=== PATIENT | male | born 1940 | race Caucasian/White ===

== ENCOUNTER → 2017-02-23 | Outpatient (CLI) | payer OTHER ==
[~2017-02-23] MED LIST: AMLODIPINE5 MG PO; ASPIR 8181 MG PO; BETA PROSTATE PO; FLOMAX0.4 MG PO; LEVOTHROID0.075 MG PO; MINOCYCLINE HCL50 M1 PO; OMEGA 3 KRILL; RAMIPRIL5 MG PO; VITAMIN D31000 IU PO
[2017-02-23 10:11] LABS: ALBUMIN 3.8 gm/dl (3.1-4.5); BUN 11 mg/dl (7-24); CHLORIDE 107 mmol/L (98-107); CHOLESTEROL 191 mg/dL (<200); CREATININE 1.09 mg/dL (0.70-1.30); POTASSIUM 4.1 mmol/L (3.5-5.1); SGOT/AST 22 IU/L (3-35); SGPT/ALT 34 U/L (12-78); SODIUM 139 mmol/L (136-145); TRIGLYCERIDES 128 mg/dl (<150); VLDL CHOLESTEROL 26 mg/dL (6-40)
[2017-02-23 10:12] LABS: BASO % 0.6 % (0.0-1.0); EOS # 0.1 10*3/uL (0.0-0.4); EOS % 2.4 % (1.0-4.0); HEMATOCRIT 43.9 % (42.0-52.0); HEMOGLOBIN 14.6 g/dl (14.0-18.0); LYMPH # 1.4 10*3/uL (1.3-4.4); LYMPH % 28.4 % (27.0-41.0); MEAN CELL VOLUME 96.1 fl (80.0-94.0); MEAN CORPUSCULAR HGB 31.9 pg (27.0-31.0); MEAN CORPUSCULAR HGB CONC 33.3 g/dl (33.0-37.0); MONO # 0.4 10*3/uL (0.1-1.0); MONO % 8.6 % (3.0-9.0); NEUT % 59.6 % (47.0-73.0); PLATELET COUNT AUTOMATED 279 10*3/uL (130-400); RED BLOOD COUNT 4.57 10*6/uL (4.50-5.90)
[2017-02-23 10:18] LABS: ALKALINE PHOSPHATASE 87 U/L (45-117); FREE T4 0.92 ng/dl (0.76-1.46); HDL CHOLESTEROL 44 mg/dl (40-60); LDL CHOLESTEROL 121 mg/dL (9-159); TOTAL PROTEIN 7.8 gm/dL (6.4-8.2)
== END | disposition home or self-care (01) ==
LOC: LAB 08:56
PROVIDERS: Internal Medicine
DX: I10 Essential (primary) hypertension (principal); E03.9 Hypothyroidism, unspecified; I25.10 Atherosclerotic heart disease of native coronary artery without angina pectoris

== ENCOUNTER 2017-03-22 11:46 | Emergency (ER) | payer OTHER ==
[~2017-03-22] VITALS: Ht 172.7 cm; Wt 65.8 kg
[2017-03-22 11:50] VITALS: BP 142/84
[2017-03-22] MEDS ORDERED: VIBRAMYCIN100 MG PO (12:10)
== END 2017-03-22 12:11 | disposition home or self-care (01) ==
LOC: ED 11:46
DX: A26.0 Cutaneous erysipeloid (principal); A69.20 Lyme disease, unspecified; R03.0 Elevated blood-pressure reading, without diagnosis of hypertension; Z90.89 Acquired absence of other organs; Z79.899 Other long term (current) drug therapy; Z79.82 Long term (current) use of aspirin

== ENCOUNTER → 2018-12-04 | Day surgery (SDC) | payer OTHER ==
[~2018-12-04] VITALS: Wt 70.0 kg
[~2018-12-04] MED LIST changes: +CIPRO500 MG PO; +COREG6.25 MG PO; +COZAAR100 MG PO; +ELIQUIS5 M1 PO; +HYDR12.5C PO; +HYDR25T PO; +IMDUR SA30 MG PO; +LEVOTHYROXINE50 MCG PO; +NITROSTAT0.4 MG PO; +PLAVIX75 M1 PO; +PRAVASTATIN SOD10 MG PO; +SEPTDS PO; +VIBRAMYCIN100 MG PO
--- NOTE | ~2018-12-04 | O ---
[place], [place] OPERATIVE NOTE NAME: KEILY MONTIEL UNIT #: [id number] ROOM: DOCTOR: IMELDA ORTEGA MD BIRTHDATE: [birth year] DOS: 12/04/2018 PREOPERATIVE DIAGNOSIS: Cataract, right eye. POSTOPERATIVE DIAGNOSIS: Cataract, right eye. OPERATION: Extracapsular cataract extraction by phacoemulsification with posterior chamber intraocular lens implantation, right eye. ANESTHESIA: Monitored standby. OPERATIVE FINDINGS AND PROCEDURE: 2% Xylocaine topical anesthetic gel was applied to the eye in the preop area. The patient was taken to the operating room and prepped and draped in the standard fashion for sterile intraocular surgery. A time out procedure was performed verifying correct patient, correct site and corrects lens with Mikhail Ortega M.D. The operating microscope was swung into position and the lid speculum was inserted. Using a April paracentesis blade, a paracentesis was made through clear cornea. Viscoelastic was used to fill the anterior chamber. Using a metal keratome a 2.4 mm self-sealing clear corneal cataract incision was made temporally at the limbus. Using a pre-bent 25 gauge cystotome needle, a standard continuous curvilinear capsulorrhexis was performed. The anterior capsule was removed with forceps. The lens nucleus was hydrodissected and phacoemulsified in the posterior chamber. Cortical material was removed with the irrigation aspiration hand piece and the posterior capsule was then polished with a curet under irrigation. The posterior chamber and capsular bag were filled with viscoelastic. A posterior chamber intraocular lens manufactured by: [employer], [id number], and 16.5 diopters in strength were then inserted into the posterior chamber and within the capsular bag using the lens cartridge and injector system. Viscoelastic was removed using the irrigation aspiration handpiece. The anterior chamber was filled with balanced salt solution through the paracentesis. Both the paracentesis site and cataract incisions were hydrated with BSS and verified to be water-tight and self-sealing. Cefuroxime 1 mg/0.1 mL was injected into the anterior chamber through the paracentesis site. The incision checked to be water-tight using a Weck-Riri sponge. The integrity of the cataract wound and ocular tension were checked. Lid speculum and drapes were removed. The patient was transferred from the operating room to the recovery room in satisfactory condition. [place], [place] OPERATIVE NOTE NAME: KEILY MONTIEL UNIT #: [id number] ROOM: DOCTOR: IMELDA ORTEGA MD BIRTHDATE: [birth year] IMELDA ORTEGA MD CM:OPRECORD:OPERATIVE NOTE 1142 1150 IMELDA ORTEGA MD 12/04/18 1151 interface
[2018-12-04 10:20] VITALS: BP 164/86
[2018-12-04 11:40] VITALS: BP 146/79
[2018-12-04 11:55] VITALS: BP 149/74
[2018-12-04 12:10] VITALS: BP 141/75
== END | disposition home or self-care (01) ==
LOC: SDC 11-29 09:30
DX: H25.811 Combined forms of age-related cataract, right eye (principal); I25.2 Old myocardial infarction; I25.10 Atherosclerotic heart disease of native coronary artery without angina pectoris; I48.91 Unspecified atrial fibrillation; I69.844 Monoplegia of lower limb following other cerebrovascular disease affecting left non-dominant side; K21.9 Gastro-esophageal reflux disease without esophagitis; E78.5 Hyperlipidemia, unspecified; M19.90 Unspecified osteoarthritis, unspecified site; Z79.82 Long term (current) use of aspirin; Z79.899 Other long term (current) drug therapy; Z72.89 Other problems related to lifestyle; Z95.5 Presence of coronary angioplasty implant and graft; Z98.890 Other specified postprocedural states; Z79.01 Long term (current) use of anticoagulants; Z82.49 Family history of ischemic heart disease and other diseases of the circulatory system

== ENCOUNTER → 2019-01-08 | Day surgery (SDC) | payer OTHER ==
[~2019-01-08] VITALS: Ht 170.1 cm; Wt 68.0 kg
--- NOTE | ~2019-01-08 | O ---
[place], [place] OPERATIVE NOTE NAME: KEILY MONTIEL UNIT #: [id number] ROOM: DOCTOR: IMELDA ORTEGA MD BIRTHDATE: [birth year] DOS: 01/08/2019 PREOPERATIVE DIAGNOSIS: Cataract, left eye. POSTOPERATIVE DIAGNOSIS: Cataract, left eye. OPERATION: Extracapsular cataract extraction by phacoemulsification with posterior chamber intraocular lens implantation, left eye. ANESTHESIA: Monitored standby. OPERATIVE FINDINGS AND PROCEDURE: 2% Xylocaine topical anesthetic gel was applied to the eye in the preop area. The patient was taken to the operating room and prepped and draped in the standard fashion for sterile intraocular surgery. A time out procedure was performed verifying correct patient, correct site and corrects lens with Mikhail Ortega M.D. The operating microscope was swung into position and the lid speculum was inserted. Using a April paracentesis blade, a paracentesis was made through clear cornea. Sugarcaine, mixture of lidocaine and epinephrine, was injected into the anterior chamber. Viscoelastic was used to fill the anterior chamber. Using a metal keratome a 2.4 mm self-sealing clear corneal cataract incision was made temporally at the limbus. Using a pre-bent 25 gauge cystotome needle, a standard continuous curvilinear capsulorrhexis was performed. The anterior capsule was removed with forceps. The lens nucleus was hydrodissected and phacoemulsified in the posterior chamber. Cortical material was removed with the irrigation aspiration hand piece and the posterior capsule was then polished with a curet under irrigation. The posterior chamber and capsular bag were filled with viscoelastic. A posterior chamber intraocular lens manufactured by: [employer], Model #[id number] and 16.5 diopters in strength were then inserted into the posterior chamber and within the capsular bag using the lens cartridge and injector system. Viscoelastic was removed using the irrigation aspiration handpiece. The anterior chamber was filled with balanced salt solution through the paracentesis. Both the paracentesis site and cataract incisions were hydrated with BSS and verified to be water-tight and self-sealing. Cefuroxime 1 mg/0.1 mL was injected into the anterior chamber through the paracentesis site. The incision checked to be water-tight using a Weck-Riri sponge. The integrity of the cataract wound and ocular tension were checked. Lid speculum and drapes were removed. The patient was transferred from the operating room to the recovery room in satisfactory condition. [place], [place] OPERATIVE NOTE NAME: KEILY MONTIEL UNIT #: [id number] ROOM: DOCTOR: IMELDA ORTEGA MD BIRTHDATE: [birth year] IMELDA ORTEGA MD CM:OPRECORD:OPERATIVE NOTE 1520 00 IMELDA ORTEGA MD 01/08/19 1900 interface
[2019-01-08 14:20] VITALS: BP 151/94
[2019-01-08 15:17] VITALS: BP 150/78
[2019-01-08 15:32] VITALS: BP 147/81
[2019-01-08 15:45] VITALS: BP 130/79
== END | disposition home or self-care (01) ==
LOC: SDC 01-03 11:00
DX: H25.812 Combined forms of age-related cataract, left eye (principal); I25.2 Old myocardial infarction; I25.10 Atherosclerotic heart disease of native coronary artery without angina pectoris; I10 Essential (primary) hypertension; I69.354 Hemiplegia and hemiparesis following cerebral infarction affecting left non-dominant side; E78.5 Hyperlipidemia, unspecified; Z96.41 Presence of insulin pump (external) (internal); Z96.1 Presence of intraocular lens; Z79.82 Long term (current) use of aspirin; Z79.899 Other long term (current) drug therapy; Z87.891 Personal history of nicotine dependence; Z98.890 Other specified postprocedural states; Z72.89 Other problems related to lifestyle; Z82.49 Family history of ischemic heart disease and other diseases of the circulatory system

== ENCOUNTER → 2019-02-25 | Outpatient (CLI) | payer OTHER ==
[2019-02-25 07:58] LABS: BASO % 0.6 % (0.0-1.0); EOS # 0.1 10*3/uL (0.0-0.4); EOS % 2.3 % (1.0-4.0); HEMATOCRIT 40.8 % (42.0-52.0); HEMOGLOBIN 13.1 g/dl (14.0-18.0); LYMPH # 1.3 10*3/uL (1.3-4.4); LYMPH % 25.6 % (27.0-41.0); MEAN CELL VOLUME 94.7 fl (80.0-94.0); MEAN CORPUSCULAR HGB 30.4 pg (27.0-31.0); MEAN CORPUSCULAR HGB CONC 32.1 g/dl (33.0-37.0); MEAN PLATELET VOLUME 9.6 fl (9.6-12.3); MONO # 0.6 10*3/uL (0.1-1.0); MONO % 11.7 % (3.0-9.0); NEUT # 3.1 10*3/uL (2.3-7.9); NEUT % 59.4 % (47.0-73.0); PLATELET COUNT AUTOMATED 292 10*3/uL (130-400); RED BLOOD COUNT 4.31 10*6/uL (4.50-5.90); RED CELL DISTRI WIDTH 14.9 % (0-14.5); WHITE BLOOD COUNT 5.2 10*3/uL (4.8-10.8)
[2019-02-25 08:30] LABS: ALBUMIN 3.2 gm/dl (3.1-4.5); ALKALINE PHOSPHATASE 91 U/L (45-117); BUN 14 mg/dl (7-24); CHLORIDE 110 mmol/L (98-107); CHOLESTEROL 160 mg/dL (<200); CREATININE 1.12 mg/dL (0.70-1.30); FREE T4 0.95 ng/dl (0.76-1.46); HDL CHOLESTEROL 39 mg/dl (40-60); LDL CHOLESTEROL 99 mg/dL (9-159); SGOT/AST 17 IU/L (3-35); SGPT/ALT 33 U/L (12-78); SODIUM 141 mmol/L (136-145); TOTAL PROTEIN 6.8 gm/dL (6.4-8.2); TRIGLYCERIDES 111 mg/dl (<150); VLDL CHOLESTEROL 22 mg/dL (6-40)
== END | disposition home or self-care (01) ==
LOC: LAB 07:33
PROVIDERS: Internal Medicine
DX: R97.20 Elevated prostate specific antigen [PSA] (principal); E03.9 Hypothyroidism, unspecified; I10 Essential (primary) hypertension; E78.5 Hyperlipidemia, unspecified

== ENCOUNTER → 2019-04-25 | Outpatient (CLI) | payer OTHER ==
[2019-04-25 10:26] LABS: BASO % 0.4 % (0.0-1.0); EOS # 0.1 10*3/uL (0.0-0.4); EOS % 1.5 % (1.0-4.0); HEMOGLOBIN 13.3 g/dl (14.0-18.0); LYMPH # 1.4 10*3/uL (1.3-4.4); LYMPH % 26.8 % (27.0-41.0); MEAN CELL VOLUME 92.5 fl (80.0-94.0); MEAN CORPUSCULAR HGB 29.3 pg (27.0-31.0); MEAN CORPUSCULAR HGB CONC 31.7 g/dl (33.0-37.0); MEAN PLATELET VOLUME 9.4 fl (9.6-12.3); MONO # 0.5 10*3/uL (0.1-1.0); MONO % 10.1 % (3.0-9.0); NEUT # 3.3 10*3/uL (2.3-7.9); PLATELET COUNT AUTOMATED 289 10*3/uL (130-400); RED BLOOD COUNT 4.54 10*6/uL (4.50-5.90); RED CELL DISTRI WIDTH 14.7 % (0-14.5); WHITE BLOOD COUNT 5.3 10*3/uL (4.8-10.8)
== END | disposition home or self-care (01) ==
LOC: LAB 10:01
DX: M31.6 Other giant cell arteritis (principal)

== ENCOUNTER → 2019-06-06 | Outpatient (CLI) | payer OTHER ==
[2019-06-06 07:33] LABS: BASO % 0.4 % (0.0-1.0); EOS # 0.1 10*3/uL (0.0-0.4); EOS % 1.7 % (1.0-4.0); HEMATOCRIT 42.9 % (42.0-52.0); HEMOGLOBIN 13.5 g/dl (14.0-18.0); LYMPH # 1.3 10*3/uL (1.3-4.4); LYMPH % 24.8 % (27.0-41.0); MEAN CELL VOLUME 91.5 fl (80.0-94.0); MEAN CORPUSCULAR HGB 28.8 pg (27.0-31.0); MEAN CORPUSCULAR HGB CONC 31.5 g/dl (33.0-37.0); MONO # 0.6 10*3/uL (0.1-1.0); MONO % 10.4 % (3.0-9.0); NEUT # 3.4 10*3/uL (2.3-7.9); NEUT % 62.5 % (47.0-73.0); PLATELET COUNT AUTOMATED 309 10*3/uL (130-400); RED BLOOD COUNT 4.69 10*6/uL (4.50-5.90); RED CELL DISTRI WIDTH 14.8 % (0-14.5); WHITE BLOOD COUNT 5.4 10*3/uL (4.8-10.8)
[2019-06-06 07:49] LABS: ALBUMIN 3.3 gm/dl (3.1-4.5); ALKALINE PHOSPHATASE 105 U/L (45-117); BUN 15 mg/dl (7-24); CHLORIDE 110 mmol/L (98-107); CHOLESTEROL 172 mg/dL (<200); CREATININE 1.16 mg/dL (0.70-1.30); FREE T4 0.94 ng/dl (0.76-1.46); HDL CHOLESTEROL 35 mg/dl (40-60); LDL CHOLESTEROL 112 mg/dL (9-159); POTASSIUM 3.9 mmol/L (3.5-5.1); SGOT/AST 24 IU/L (3-35); SGPT/ALT 44 U/L (12-78); SODIUM 140 mmol/L (136-145); TRIGLYCERIDES 127 mg/dl (<150); VLDL CHOLESTEROL 25 mg/dL (6-40)
== END | disposition home or self-care (01) ==
LOC: LAB 06:45
PROVIDERS: Internal Medicine
DX: R97.20 Elevated prostate specific antigen [PSA] (principal); E78.5 Hyperlipidemia, unspecified; E03.9 Hypothyroidism, unspecified; I10 Essential (primary) hypertension

== ENCOUNTER → 2020-01-07 | Outpatient (CLI) | payer OTHER ==
[2020-01-07 08:11] LABS: BASO % 0.8 % (0.0-1.0); EOS # 0.2 10*3/uL (0.0-0.4); EOS % 3.2 % (1.0-4.0); HEMATOCRIT 38.8 % (42.0-52.0); LYMPH # 1.2 10*3/uL (1.3-4.4); LYMPH % 25.5 % (27.0-41.0); MEAN CELL VOLUME 87.4 fl (80.0-94.0); MEAN CORPUSCULAR HGB 27.3 pg (27.0-31.0); MEAN CORPUSCULAR HGB CONC 31.2 g/dl (33.0-37.0); MEAN PLATELET VOLUME 9.8 fl (9.6-12.3); MONO # 0.5 10*3/uL (0.1-1.0); MONO % 9.5 % (3.0-9.0); NEUT # 2.9 10*3/uL (2.3-7.9); NEUT % 60.8 % (47.0-73.0); PLATELET COUNT AUTOMATED 329 10*3/uL (130-400); RED BLOOD COUNT 4.44 10*6/uL (4.50-5.90); RED CELL DISTRI WIDTH 15.2 % (0-14.5); WHITE BLOOD COUNT 4.7 10*3/uL (4.8-10.8)
[2020-01-07 08:44] LABS: ALBUMIN 3.5 gm/dl (3.1-4.5); BUN 18 mg/dl (7-24); CHLORIDE 110 mmol/L (98-107); POTASSIUM 4.3 mmol/L (3.5-5.1); SGPT/ALT 30 U/L (12-78); SODIUM 141 mmol/L (136-145)
[2020-01-07 08:51] LABS: ALKALINE PHOSPHATASE 94 U/L (45-117); CHOLESTEROL 189 mg/dL (<200); CREATININE 1.19 mg/dL (0.70-1.30); FREE T4 0.96 ng/dl (0.76-1.46); HDL CHOLESTEROL 41 mg/dl (40-60); LDL CHOLESTEROL 123 mg/dL (9-159); SGOT/AST 19 IU/L (3-35); TOTAL PROTEIN 7.3 gm/dL (6.4-8.2); TRIGLYCERIDES 124 mg/dl (<150); VLDL CHOLESTEROL 25 mg/dL (6-40)
== END | disposition home or self-care (01) ==
LOC: LAB 07:13
PROVIDERS: Internal Medicine
DX: E78.5 Hyperlipidemia, unspecified (principal); E03.9 Hypothyroidism, unspecified; I10 Essential (primary) hypertension; E55.9 Vitamin D deficiency, unspecified

== ENCOUNTER → 2020-04-02 | Outpatient (CLI) | payer OTHER | END | disposition home or self-care (01) | LOC: LAB 06:49 | PROVIDERS: ATTEND Internal Medicine | DX: E78.5 Hyperlipidemia, unspecified (principal); E83.51 Hypocalcemia ==